=== PATIENT | male | born 1995 ===

== ENCOUNTER 2018-03-31 14:54 | Emergency (ER) | payer BC ==
--- NOTE | 2018-03-31 15:08 | C.PDOC ---
History Of Present Illness 22 y/o M c no PMHx p/w altered mental status x less than 1 hour. Patient was at work in car with coworker when he complained of a headache and then suddenly became unresponsive. Upon arrival with EMS, patient with hands clenched together , nonverbal, taking very slow breaths. Full HPI/ROS unobtainable secondary to patient's clinical condition. Time Seen by Provider: 03/31/18 14:58 Chief Complaint (Nursing): Altered Mental Status Past Medical History Vital Signs: Last Vital Signs Temp 98 F 03/31/18 15:35 Pulse 89 03/31/18 15:35 Resp 18 03/31/18 15:35 BP 127/77 03/31/18 15:35 Pulse Ox 100 03/31/18 15:35 Family History: States: No Known Family Hx Review Of Systems Review Of Systems: ROS cannot be obtained secondary to pt's inabilty to answer questions. Physical Exam - Physical Exam Additional Physical Exam Comments: Constitutional: Unresponsive. Head: Normocephalic. Atraumatic. Eyes: Constricted pupils. ENT: Clenched. Neck: Supple. Cardiovascular: Tachycardic 150. Radial pulse 2+ bilaterally. Chest: No deformity. Respiratory: Pulse oximetry 70%. GI: Soft. Nondistended. Back: No ecchymosis. Musculoskeletal: No swelling of extremities. Skin: Facial area appears cyanotic Neurologic: Unresponsive. ED Course And Treatment - Laboratory Results Result Diagrams: 03/31/18 15:19 03/31/18 15:19 Medical Decision Making Medical Decision Making: Narcan verbally ordered, patient became mildly more responsive, appeared drowsy , narcan then given, and patient awake and alert. Pupils now 3mm. Patient reports frontal pressure like headache which he states he has had since yesterday associated with nausea and NBNB vomiting. He also reports photophobia. Denies only marijuana use and social alcohol use. Denies new medications or drugs. Denies trauma or injury. Differential includes narcotic overdose vs seizure. EKG Sinus rhythm, tachycardic, no ST elevations. Patient feels completely normal, vital signs all normal. Opiates found in urine , patient denies taking, states did smoke marijuana, perhaps laced? Also, CK elevated, possible seizure? vs muscle clenching due to respiratory cessation. Will discharge, instructed to f/u with neuro, patient also requested information for Ophtho, return to ED for recurrent episode, headache, or any other problem. Disposition - Disposition Referrals: Mallorie Graham MD [Staff Provider] - Jeremiah Sauer [Staff Provider] - Disposition: HOME/ ROUTINE Disposition Time: 17:50 Condition: STABLE Additional Instructions: PROCEDURE: CT HEAD WITHOUT CONTRAST. HISTORY: unconscious COMPARISON: None available. TECHNIQUE: Axial computed tomography images were obtained through the head/brain without intravenous contrast. Radiation dose: Total exam DLP = 30.74 mGy-cm. This CT exam was performed using one or more of the following dose reduction techniques: Automated exposure control, adjustment of the mA and/or kV according to patient size, and/or use of iterative reconstruction technique. FINDINGS: HEMORRHAGE: No intracranial hemorrhage. BRAIN: Powell-white matter differentiation is preserved. There is no mass, mass effect or abnormal extra-axial fluid collection. There is no territorial infarction. VENTRICLES: The ventricles are normal in size, shape and configuration. CALVARIUM: The skull base and calvarium are normal. PARANASAL SINUSES: Predominantly clear. MASTOID AIR CELLS: Predominantly clear. OTHER FINDINGS: None. IMPRESSION: No acute intracranial abnormality. HISTORY: loss of consciousness COMPARISON: No prior. FINDINGS: LUNGS: The lungs are well inflated and clear. PLEURA: No significant pleural effusion identified, no pneumothorax apparent. CARDIOVASCULAR: Normal. OSSEOUS STRUCTURES: No significant abnormalities. VISUALIZED UPPER ABDOMEN: Normal. OTHER FINDINGS: None. IMPRESSION: No active pulmonary disease. Instructions: Seizures, Adult (DC) Forms: [employer] (Togolese) - Clinical Impression Clinical Impression: Loss of consciousness
[2018-03-31] MEDS ORDERED: Naloxone 0.4 mg/ml Inj (Adult) ONE (15:09)
[2018-03-31 15:33] LABS: BASO # 0.1 K/uL (0.0-0.2); BASO % 0.4 % (0.0-2.0); EOS # 0.7 K/uL (0.0-0.7); EOS % 6.1 % (0.0-4.0); HEMOGLOBIN 14.5 g/dL (12.0-18.0); LYMPH # 4.7 K/uL (1.0-4.3); LYMPH % 40.9 % (20.0-40.0); MEAN CELL VOLUME 87.6 fL (80.0-94.0); MEAN CORPUSCULAR HEMOGLOBIN 29.3 pg (27.0-31.0); MEAN CORPUSCULAR HGB CONC 33.5 g/dL (33.0-37.0); MEAN PLATELET VOLUME 9.4 fL (7.2-11.7); MONO # 1.1 K/uL (0.0-0.8); NEUT # 4.8 K/uL (1.8-7.0); NEUT % 42.6 % (50.0-75.0); RBC 4.95 Mil/uL (4.40-5.90); RED CELL DISTRIBUTION WIDTH 14.3 % (11.5-14.5); WHITE BLOOD COUNT 11.4 K/uL (4.8-10.8)
[2018-03-31 15:45] VITALS: TEMP 98
[2018-03-31 15:45] LABS: ALB/GLOB RATIO 1.7 (1.0-2.1); ALT/SGPT 45 U/L (21-72); AST/SGOT 50 U/L (17-59); BLOOD UREA NITROGEN 15 mg/dL (9-20); CALCIUM 8.6 mg/dl (8.6-10.4); GFR AFRICAN-AMERICAN > 60; GFR NON-AFRICAN AMERICAN > 60; LIPASE 84 U/L (23-300)
--- NOTE | 2018-03-31 15:46 | CT ---
PROCEDURE: CT HEAD WITHOUT CONTRAST. HISTORY: unconscious COMPARISON: None available. TECHNIQUE: Axial computed tomography images were obtained through the head/brain without intravenous contrast. Radiation dose: Total exam DLP = 30.74 mGy-cm. This CT exam was performed using one or more of the following dose reduction techniques: Automated exposure control, adjustment of the mA and/or kV according to patient size, and/or use of iterative reconstruction technique. FINDINGS: HEMORRHAGE: No intracranial hemorrhage. BRAIN: Powell-white matter differentiation is preserved. There is no mass, mass effect or abnormal extra-axial fluid collection. There is no territorial infarction. VENTRICLES: The ventricles are normal in size, shape and configuration. CALVARIUM: The skull base and calvarium are normal. PARANASAL SINUSES: Predominantly clear. MASTOID AIR CELLS: Predominantly clear. OTHER FINDINGS: None. IMPRESSION: No acute intracranial abnormality.
[2018-03-31 15:59] LABS: CK-MB 4.83 ng/mL (0.0-3.38)
--- NOTE | 2018-03-31 17:07 | RAD ---
HISTORY: loss of consciousness COMPARISON: No prior. FINDINGS: LUNGS: The lungs are well inflated and clear. PLEURA: No significant pleural effusion identified, no pneumothorax apparent. CARDIOVASCULAR: Normal. OSSEOUS STRUCTURES: No significant abnormalities. VISUALIZED UPPER ABDOMEN: Normal. OTHER FINDINGS: None. IMPRESSION: No active pulmonary disease.
[2018-03-31 17:17] LABS: URINE BACTERIA RARE (<OCC); URINE BILIRUBIN NEGATIVE (NEGATIVE); URINE BLOOD NEGATIVE (NEGATIVE); URINE CLARITY Clear (Clear); URINE COLOR Yellow (YELLOW); URINE GLUCOSE (UA) NORMAL (Normal); URINE LEUKOCYTE ESTERASE NEG Leu/uL (Negative); URINE PROTEIN NEGATIVE (NEGATIVE); URINE UROBILINOGEN NORMAL mg/dL (0.2-1.0)
[2018-03-31 17:28] LABS: BARBITURATES, UR NEGATIVE (NEGATIVE); BENZODIAZEPINES, UR NEGATIVE (NEGATIVE); PHENCYCLIDINE, UR NEGATIVE (NEGATIVE)
[2018-03-31 17:30] LABS: OPIATES, UR POSITIVE (NEGATIVE)
[2018-03-31 17:56] VITALS: BP 121/70; PULSE 82; RESP 16; O2SAT 99
--- NOTE | 2018-04-02 19:57 | CARD ---
APPROVED REPORT EKG Measurement Heart [id number] <Conclusion> Sinus tachycardia Otherwise normal ECG
== END 2018-03-31 18:02 | disposition home or self-care (01) ==
LOC: C.ER 14:54 → EDBD 14:54 → C.ER 18:02
DX: R55 Syncope and collapse (principal)
CPT/HCPCS: 70450; 71045; 80053; 81001; 82550; 82553; 82948; 83690; 83735; 84100; 84484; 85025; 87086; 93005; 96374; 99285; G0480; J2765